=== PATIENT | female | born 1995 | race Hispanic/Latino ===

== ENCOUNTER 2018-01-04 13:46 | Emergency (ER) | payer OTHER, SELFPAY ==
[2018-01-04] MEDS ORDERED: predniSONE 20 MG TAB ONE (14:49)
[2018-01-04] MEDS ORDERED: Ibuprofen 800 MG TAB ONE (14:49)
[2018-01-04] MEDS ORDERED: Albuterol Sulfate 2.5 mg/3 ml Neb ONE ×2 (14:51)
--- NOTE | 2018-01-04 15:43 | RAD ---
CHEST PA AND LATERAL: History A 22-year-old female with a history of shortness of breath, fever, and wheezing with headache and chi lls. COMPARISON: 05/28/2015. FINDINGS: Heart size is normal. The lungs are clear of acute process. IMPRESSION: No acute intrathoracic disease. Stable from prior study. POS: [facility]
== END 2018-01-04 15:39 | disposition home or self-care (01) ==
LOC: ERS 13:46
DX: J45.901 Unspecified asthma with (acute) exacerbation (principal); J06.9 Acute upper respiratory infection, unspecified; F32.9 Major depressive disorder, single episode, unspecified
CPT/HCPCS: 71046; 87804; 94640; J7506; J7611

== ENCOUNTER 2018-03-14 15:29 | Emergency (ER) | payer SELFPAY ==
--- NOTE | 2018-03-14 17:05 | RAD ---
PA AND LATERAL VIEWS OF THE CHEST: 03/14/18 HISTORY: Cough. FINDINGS: Comparison made with exam of 01/04/18. The cardiomediastinum is normal. The lungs are expanded and clear. The bony thorax is normal. IMPRESSION: Normal exam. POS: [facility]
== END 2018-03-14 16:47 | disposition home or self-care (01) ==
LOC: ERS 15:29
DX: J45.901 Unspecified asthma with (acute) exacerbation (principal); J06.9 Acute upper respiratory infection, unspecified; F32.9 Major depressive disorder, single episode, unspecified; Z79.51 Long term (current) use of inhaled steroids
CPT/HCPCS: 71046

== ENCOUNTER 2018-07-10 20:27 | Emergency (ER) | payer SELFPAY | END 2018-07-10 21:26 | disposition left against medical advice (07) | LOC: ERS 20:27 | DX: Z53.21 Procedure and treatment not carried out due to patient leaving prior to being seen by health care provider (principal) ==

== ENCOUNTER 2018-12-22 19:06 | Emergency (ER) | payer SELFPAY ==
[2018-12-22] MEDS ORDERED: Acetaminophen 500 MG TAB ONE (19:53)
--- NOTE | 2018-12-22 20:15 | RAD ---
RIGHT HIP TWO-THREE VIEW: 12/22/18 INDICATION: Pain. FINDINGS: No fracture or dislocation. Mild joint space loss is seen at the right hip with slight subchondral sc lerosis. IMPRESSION: No acute osseous abnormality of the right hip. There is mild degenerative change. POS: [facility]
[2018-12-22 21:37] LABS: Bacteria/HPF None Seen HPF (None Seen); Bilirubin Negative (Negative); Blood, Urine Trace (Negative); Clarity Clear (Clear); Glucose, Urine (Dipstick) Normal (Negative); Leukocyte Negative Leu/uL (Negative); Nitrite Negative (Negative); Protein, Urine (Dipstick) Negative (Neg-Trace); RBC/HPF 0-3 HPF (0-3); Squamous Epithelial 0-3 HPF (0-3); Urobilinogen Normal mg/dL (Less than 2); WBC/HPF 0-3 HPF (0-3)
[2018-12-22 21:41] LABS: Pregnancy Test - Urine (BHCG) Negative (Negative); Pregu Control Background? CLEAR/WHITE (CLR/WHITE); Pregu Control Bar Appear? YES (CONTROL BAR); Specific Gravity 1.014 (1.002-1.036)
[2018-12-22] MEDS ORDERED: Ketorolac Tromethamine 60 MG/2 ML VIAL ONE (22:18)
== END 2018-12-22 22:41 | disposition home or self-care (01) ==
LOC: ERS 19:06
DX: M25.551 Pain in right hip (principal); J45.909 Unspecified asthma, uncomplicated; F32.9 Major depressive disorder, single episode, unspecified; Z79.899 Other long term (current) drug therapy; X50.1XXA Overexertion from prolonged static or awkward postures, initial encounter
CPT/HCPCS: 81003; 81015; 81025; 96372; J1885

== ENCOUNTER 2019-01-28 09:46 | Emergency (ER) | payer SELFPAY ==
[2019-01-28] MEDS ORDERED: Ketorolac Tromethamine 30 MG/ML VIAL ONE (10:23)
[2019-01-28] MEDS ORDERED: Metoclopramide HCl 10 MG/2 ML VIAL ONE (10:23)
[2019-01-28] MEDS ORDERED: diphenhydrAMINE 50 MG/ML VIAL ONE (10:23)
== END 2019-01-28 13:06 | disposition home or self-care (01) ==
LOC: ERS 09:46
DX: G43.909 Migraine, unspecified, not intractable, without status migrainosus (principal)
CPT/HCPCS: 96365; 96366; 96375; J1200; J1885; J2765

== ENCOUNTER 2019-04-09 16:23 | Emergency (ER) | payer SELFPAY | END 2019-04-09 19:26 | disposition left against medical advice (07) | LOC: ERS 16:23 | DX: Z53.21 Procedure and treatment not carried out due to patient leaving prior to being seen by health care provider (principal) ==

== ENCOUNTER 2022-01-17 10:37 | Emergency (ER) | payer SELFPAY ==
[2022-01-17] MEDS ORDERED: HYDROcodone/Acetaminophen 10/325 mg Tablet ONE (11:19)
== END 2022-01-17 12:08 | disposition home or self-care (01) ==
LOC: ERS 10:37
DX: S93.401A Sprain of unspecified ligament of right ankle, initial encounter (principal); J45.909 Unspecified asthma, uncomplicated; W10.9XXA Fall (on) (from) unspecified stairs and steps, initial encounter

== ENCOUNTER 2023-04-17 08:24 | Emergency (ER) | payer SELFPAY ==
[2023-04-17] MEDS ORDERED: Ketorolac Tromethamine 30 MG (1 mL) VIAL ONE (09:17)
== END 2023-04-17 09:48 | disposition home or self-care (01) ==
LOC: ERS 08:24
DX: K02.9 Dental caries, unspecified (principal)
CPT/HCPCS: 96372; 99282; J1885

== ENCOUNTER 2024-01-07 18:51 | Emergency (ER) | payer SELFPAY ==
[2024-01-07] MEDS ORDERED: HYDROcodone/Acetaminophen 5/325 mg Tablet ONE (19:27)
[2024-01-07] MEDS ORDERED: Ketorolac Tromethamine 30 MG (1 mL) VIAL ONE (19:27)
== END 2024-01-07 19:34 | disposition home or self-care (01) ==
LOC: ERS 18:51
DX: K04.7 Periapical abscess without sinus (principal); K02.9 Dental caries, unspecified; F17.290 Nicotine dependence, other tobacco product, uncomplicated
CPT/HCPCS: 96372; 99282; J1885